=== PATIENT | male | born 1970 | race Caucasian/White ===

== ENCOUNTER 2021-01-12 14:02 | Emergency (ER) | payer OTHER ==
[~2021-01-12] VITALS: Ht 182.9 cm; Wt 72.6 kg
--- NOTE | 2021-01-12 14:23 | ED Neurological Problem ---
General Stated Complaint: SEIZURE Source: patient, family Exam Limitations: no limitations History of Present Illness Date Seen by Provider: Jan 12, 2021 Time Seen by Provider: 14:07 Initial Comments 50-year-old male with past medical history of seizure disorder coming in after he had a seizure, fell forward and hit his face on the table. He was postictal for roughly 30 minutes. Spouse called EMS who brought him here. He stopped taking his seizure medicine, Keppra, roughly 2 years ago because he says it made him sleepy. He has not been on any medication or followed up with a neurologist since. He has a seizure roughly every few days, but normally feels it coming and is able to get in a safe place before it. This time he was unable to do that. For the past couple days he has not wanted to eat or drink as much as usual and had some chills this morning but otherwise denies any chest pain, shortness of breath, cough, vomiting, weakness, numbness, dysuria, urinary frequency, diarrhea, rash, or any other concerns. Last tetanus vaccine greater than 10 years ago. Allergies and Home Medications Allergies Coded Allergies: No Known Drug Allergies (Unverified , 01/12/21) Patient Home Medication List Home Medication List Reviewed: Yes Review of Systems Review of Systems Constitutional: chills; No fever Eyes: Denies Blurred Vision Ears, Nose, Mouth, Throat: epistaxis Respiratory: No cough, No short of breath Cardiovascular: No chest pain Gastrointestinal: No abdominal pain, No diarrhea, No nausea, No vomiting Genitourinary: no symptoms reported Musculoskeletal: no symptoms reported Skin: other (nose laceration) Psychiatric/Neurological: No Symptoms Reported Endocrine: No Symptoms Reported Hematologic/Lymphatic: No Symptoms Reported All Other Systems Reviewed Negative Unless Noted: Yes Past Pwmldtf-Nvnvgf-Zwdwsc Hx Patient Social History Tobacco Use?: Yes Past Medical History Surgeries: No Physical Exam Vital Signs Vital Signs - First Documented 01/12/21 14:02 Temp 36.0 Pulse 116 Resp 18 B/P (MAP) 120/89 (99) O2 Delivery Room Air Capillary Refill : Height, Weight, BMI Height: '" Weight: lbs. oz. kg; BMI Method: General Appearance: WD/WN, no apparent distress HEENT: PERRL/EOMI, normal ENT inspection, TMs normal, pharynx normal Neck: non-tender, full range of motion, supple, normal inspection Respiratory: chest non-tender, lungs clear, normal breath sounds, no respiratory distress, no accessory muscle use Cardiovascular: regular rate, rhythm, no edema, no murmur Gastrointestinal: normal bowel sounds, non tender, soft; No distended, No gua rding, No rebound Back: normal inspection, no CVA tenderness, no vertebral tenderness Extremities: normal range of motion, non-tender, normal inspection, no pedal edema, no calf tenderness, normal capillary refill Neurologic/Psychiatric: post manager II-XII nml as tested, no motor/sensory deficits, alert, normal mood/affect, oriented x 3; No abnormal gait Crainal Nerves: normal hearing, normal speech, PERRL Coordination/Gait: normal finger to nose, normal gait Motor/Sensory: no motor deficit, no sensory deficit, no pronator drift Skin: normal color, warm/dry Lymphatic: no adenopathy Procedures/Interventions Wound Location: Face Other Wound Location nose Wound Length (cm): 2 Wound's Depth, Shape: superficial Wound Explored: clean Irrigated w/ Saline (ccs): 250 Betadine Prep?: Yes Anesthesia: Lidocaine w/ Epi Volume Anesthetic (ccs): 2 Suture: Chromic (fast absorbing gut) Suture Size: 6-0 Number of Sutures: 5 Sterile Dressing Applied?: No Progress Wound was cleaned, anesthetized with local anesthetic, and fast-absorbing suture was used. Wound is hemostatic and well-appearing. Patient tolerated the procedure well. Progress/Results/Core Measures Results/Orders Lab Results Laboratory Tests Test 01/12/21 14:20 Range/Units White Blood Count 9.8 4.3-11.0 10^3/uL Red Blood Count 4.42 4.30-5.52 10^6/uL Hemoglobin 15.3 13.3-17.7 g/dL Hematocrit 44 40-54 % Mean Corpuscular Volume 100 H 80-99 fL Mean Corpuscular Hemoglobin 35 H 25-34 pg Mean Corpuscular Hemoglobin Concent 35 32-36 g/dL Red Cell Distribution Width 11.6 10.0-14.5 % Platelet Count 153 130-400 10^3/uL Mean Platelet Volume 11.2 9.0-12.2 fL Immature Granulocyte % (Auto) 1 % Neutrophils (%) (Auto) 61 42-75 % Lymphocytes (%) (Auto) 22 12-44 % Monocytes (%) (Auto) 15 H 0-12 % Eosinophils (%) (Auto) 1 0-10 % Basophils (%) (Auto) 1 0-10 % Neutrophils # (Auto) 5.9 1.8-7.8 X 10^3 Lymphocytes # (Auto) 2.1 1.0-4.0 X 10^3 Monocytes # (Auto) 1.4 H 0.0-1.0 X 10^3 Eosinophils # (Auto) 0.1 0.0-0.3 10^3/uL Basophils # (Auto) 0.1 0.0-0.1 10^3/uL Immature Granulocyte # (Auto) 0.1 0.0-0.1 10^3/uL Sodium Level 127 L 135-145 MMOL/L Potassium Level 3.3 L 3.6-5.0 MMOL/L Chloride Level 85 L 98-107 MMOL/L Carbon Dioxide Level 15 L 21-32 MMOL/L Anion Gap 27 H 5-14 MMOL/L Blood Urea Nitrogen 4 L 7-18 MG/DL Creatinine 0.58 L 0.60-1.30 MG/DL Estimat Glomerular Filtration Rate 150 BUN/Creatinine Ratio 7 Glucose Level 146 H 70-105 MG/DL Calcium Level 9.8 8.5-10.1 MG/DL My Orders Orders - DANIEL GARBER MD Ct Head/Maxillofacial Wo (01/12/21 14:23) Basic Metabolic Panel (01/12/21 14:23) Cbc With Automated Diff (01/12/21 14:23) Dipht,Pertuss(Acell),Tet Adult (Boostrix (01/12/21 14:30) Levetiracetam Injection (Keppra Injectio (01/12/21 14:30) Lorazepam Injection (Ativan Injection) (01/12/21 14:45) Ampicillin/Sulbactam Injection (Unasyn 3 (01/12/21 15:45) Medications Given in ED Current Medications Medications Dose Ordered Sig/Solo Route Start Time Stop Time Status Last Admin Dose Admin Diphtheria/ Tetanus/Acell Pertussis 0.5 ml ONCE ONCE IM 01/12/21 14:30 01/12/21 14:31 DC 01/12/21 15:19 0.5 ML Levetiracetam 1000 mg/Sodium Chloride 110 ml @ 440 mls/hr ONCE ONCE IV 01/12/21 14:30 01/12/21 14:44 DC 01/12/21 15:18 440 MLS/HR Vital Signs/I&O 01/12/21 14:02 Temp 36.0 Pulse 116 Resp 18 B/P (MAP) 120/89 (99) O2 Delivery Room Air Progress Progress Note : Progress Note 50-year-old male with above history coming in after a seizure with a known seizure disorder but did strike his face. ABCs were intact and vitals were stable on presentation with a GCS of 15. He does have a 1 and half centimeter laceration to his nose which was cleaned and closed with fast-absorbing suture. He tolerated the procedure well. CT head and max face ordered given the trauma and swelling to his nose. He was also loaded with Keppra while in the emergency department. He says he would not take seizure medicines at home but did agree to take it once in the emergency department. Basic labs obtained and sodium is 127. He says it was lower than that a year and half ago and he is chronically low. Glucose is appropriately elevated. He does have an anion gap metabolic acidosis which would be consistent with a lactic acidosis after his seizure. I suspect he will clear this rapidly. CT negative and his head for anything acute. CT face concerning for nasal bone fracture. I will refer him to Dr. Polo our ENT surgeon, or he can go somewhere else that he would like. I also recommend he follows up with a neurologist to see if there is a medication he would tolerate better. I discussed he needs to have repeat labs drawn within the next week or so for sodium to be sure it is trending in the right direction, but this does sound chronic. I believe he is stable for discharge. He was sent home with strict return precautions Diagnostic Imaging Diagonstic Imaging: CT Plain Films/CT/US/NM/MRI: facial bones, head Comments [facility] [place], [place] NAME: LILA GERARDO [facility] REC#: [id number] PT STATUS: REG ER : 1970 PHYSICIAN: DANIEL GARBER MD ADMIT DATE: 01/12/21/ER FS Draft Date of Exam:01/12/21 CT HEAD/MAXILLOFACIAL WO PROCEDURE: CT head and maxillofacial without contrast. TECHNIQUE: Multiple contiguous axial images were obtained through the head and facial bones without the use of intravenous contrast. Auto Exposure Controls were utilized during the CT exam to meet ALARA standards for radiation dose reduction. INDICATION: Seizure with head and face trauma. COMPARISON: No prior studies are available for comparison. CT HEAD: The ventricles and sulci are within normal limits. No sulcal effacement or midline shift is identified. No acute intra-axial or extra-axial hemorrhage is detected. Cisterns are patent. The visualized paranasal sinuses are clear apart from some probable minimal fluid in the right maxillary sinus. IMPRESSION: 1. No acute intracranial process detected. CT FACE: The mandible is intact. The zygomatic arches are intact. The maxillary sinus gusman appear to be intact. There is a small amount of fluid in the right maxillary sinus. There is a depressed fracture involving the left nasal bone. The age of this is indeterminate. There is some overlying soft tissue swelling and soft tissue gas. Therefore this is likely acute. The orbital gusman appear to be intact. The globes are unremarkable. Frontal sinus is clear. There is some opacification of the right-sided ethmoid air cells. Sphenoid sinuses clear. Mastoids are well-aerated. IMPRESSION: 1. Findings consistent with a left nasal bone fracture with overlying soft tissue swelling and soft tissue gas. No other facial bone fracture is identified. Dictated on workstation # [id number] Dict: 01/12/21 1500 Trans: 01/12/21 1509 [facility] [id number] Interpreted by: ZARI CHAVES MD Electronically signed by: Departure Impression Primary Impression: Seizure Additional Impressions: Laceration of nose Qualified Codes: S01.21XA - Laceration without foreign body of nose, initial encounter Nasal bone fracture Qualified Codes: S02.2XXB - Fracture of nasal bones, initial encounter for open fracture Hyponatremia Disposition: 01 HOME, SELF-CARE Condition: Improved Departure-Patient Inst. Decision time for Depature: 15:50 Referrals: MISSAEL POLO MD SELF,NAV REESE Patient Instructions: Hyponatremia (DC), Laceration Repair With Stitches ED, Nose Fracture, Seizures, Adult (DC) Add. Discharge Instructions: You were seen in the emergency department after you had a seizure and you fell and hit your nose. Your nose is broken and I want you to follow-up with Dr. Polo our ENT surgeon in [place]. If you would prefer to follow-up with somebody else that would also be okay. Take ibuprofen 600 mg every 6 hours as needed for pain. Your stitches will absorb over the next week or so. Do not let the wound get wet for the next 5 days or so, and after that you can let wa ter run over it. Do not let it be completely submerged in water for at least a week. If you have any redness spreading up your nose to your cheeks, pus coming out, or fever then I would need you to follow-up for to your primary care doctor immediately or come back to the ER. Otherwise I do recommend following up with your neurologist and seeing if there is a medication that you would tolerate better for your seizures. Also your sodium is low at 127, it is not dangerously low, but it is something that you also need to have followed up to be sure it does not continue to get lower. Dr. Edward at the [facility] is a primary care doctor that you could schedule an appointment with. Work/School Note: Work Release Form Date Seen in the Emergency Department: Jan 12, 2021 Return to Work: Jan 14, 2021 DANIEL GARBER MD Jan 12, 2021 14:22
[2021-01-12] MEDS ORDERED: TETANUS,DIPTH,PERTUSS P/F (BOOSTRIX) 0.5 ML VIAL IM ONE (14:30)
[2021-01-12 14:41] LABS: BASOPHILS % (AUTO) 1 % (0-10); EOSINOPHILS % (AUTO) 1 % (0-10); HEMATOCRIT 44 % (40-54); HEMOGLOBIN 15.3 g/dL (13.3-17.7); LYMPHOCYTES % (AUTO) 22 % (12-44); MEAN CORPUSCULAR HEMOGLOBIN 35 pg (25-34); MEAN CORPUSCULAR HGB CONC 35 g/dL (32-36); MEAN CORPUSCULAR VOLUME 100 fL (80-99); MEAN PLATELET VOLUME 11.2 fL (9.0-12.2); MONOCYTES % (AUTO) 15 % (0-12); NEUTROPHILS % (AUTO) 61 % (42-75); PLATELET COUNT 153 10^3/uL (130-400); WHITE BLOOD COUNT 9.8 10^3/uL (4.3-11.0)
[2021-01-12 14:42] LABS: BASOPHILS # (AUTO) 0.1 10^3/uL (0.0-0.1); EOSINOPHILS # (AUTO) 0.1 10^3/uL (0.0-0.3); LYMPHOCYTES # (AUTO) 2.1 X 10^3 (1.0-4.0); MONOCYTES # (AUTO) 1.4 X 10^3 (0.0-1.0); NEUTROPHILS # (AUTO) 5.9 X 10^3 (1.8-7.8)
[2021-01-12] MEDS ORDERED: LORazepam INJ 2 MG/ML (ATIVAN) VIAL IVP ONE (14:45)
[2021-01-12 14:55] LABS: POTASSIUM 3.3 MMOL/L (3.6-5.0)
[2021-01-12 14:56] LABS: CALCIUM 9.8 MG/DL (8.5-10.1); CREATININE SERUM 0.58 MG/DL (0.60-1.30)
--- NOTE | 2021-01-12 15:10 | Diagnostic Imaging Report ---
PROCEDURE: CT head and maxillofacial without contrast. TECHNIQUE: Multiple contiguous axial images were obtained through the head and facial bones without the use of intravenous contrast. Auto Exposure Controls were utilized during the CT exam to meet ALARA standards for radiation dose reduction. INDICATION: Seizure with head and face trauma. COMPARISON: No prior studies are available for comparison. CT HEAD: The ventricles and sulci are within normal limits. No sulcal effacement or midline shift is identified. No acute intra-axial or extra-axial hemorrhage is detected. Cisterns are patent. The visualized paranasal sinuses are clear apart from some probable minimal fluid in the right maxillary sinus. IMPRESSION: 1. No acute intracranial process detected. CT FACE: The mandible is intact. The zygomatic arches are intact. The maxillary sinus gusman appear to be intact. There is a small amount of fluid in the right maxillary sinus. There is a depressed fracture involving the left nasal bone. The age of this is indeterminate. There is some overlying soft tissue swelling and soft tissue gas. Therefore this is likely acute. The orbital gusman appear to be intact. The globes are unremarkable. Frontal sinus is clear. There is some opacification of the right-sided ethmoid air cells. Sphenoid sinuses clear. Mastoids are well-aerated. IMPRESSION: 1. Findings consistent with a left nasal bone fracture with overlying soft tissue swelling and soft tissue gas. No other facial bone fracture is identified. Dictated by: Dictated on workstation # [id number]
[2021-01-12] MEDS ORDERED: AMPICILLIN/SULBACTAM INJECTION 3 GM in NS (IVPB) 100 ML IV ONE (15:45)
[2021-01-12 16:30] VITALS: BP 138/77
== END 2021-01-12 16:30 | disposition home or self-care (01) ==
LOC: ER FS 14:04
DX: S02.2XXA Fracture of nasal bones, initial encounter for closed fracture (principal); R56.9 Unspecified convulsions; E87.1 Hypo-osmolality and hyponatremia; Z72.0 Tobacco use; Z23 Encounter for immunization; W22.8XXA Striking against or struck by other objects, initial encounter
CPT/HCPCS: 36415; 70450; 70486; 80048; 85025; 90715; 99283